=== PATIENT | female | born 1950 | race Caucasian/White ===

== ENCOUNTER 2016-05-29 14:49 | Emergency (ER) | payer OTHER ==
[~2016-05-29] VITALS: Ht 167.6 cm; Wt 61.7 kg
[2016-05-29] MEDS ORDERED: Morphine Sulfate 2mg/ml Inj IVP ONE (15:30)
[2016-05-29 15:46] VITALS: BP 121/54
[2016-05-29 16:23] LABS: BASOPHILS % (AUTO) 0.8 % (0.0-2.0); EOSINOPHILS % (AUTO) 0.5 % (0.0-3.0); LYMPHOCYTES % (AUTO) 25.8 % (20.0-45.0); MEAN CORPUSCULAR HEMOGLOBIN 28.5 PG (27.0-31.0); MEAN CORPUSCULAR HGB CONC 32.5 G/DL (32.0-36.0); MEAN CORPUSCULAR VOLUME 88 FL (80-99); MEAN PLATELET VOLUME 8.3 FL (6.5-10.1); MONOCYTES % (AUTO) 7.3 % (1.0-10.0); NEUTROPHILS % (AUTO) 65.6 % (45.0-75.0); PLATELET COUNT 191 K/UL (150-450); RED BLOOD COUNT 5.07 M/UL (4.20-5.40); RED CELL DISTRIBUTION WIDTH 12.4 % (11.6-14.8); WHITE BLOOD COUNT 9.6 K/UL (4.8-10.8)
[2016-05-29 16:27] LABS: TROPONIN I < 0.30 ng/mL (<=0.30)
[2016-05-29 16:30] LABS: INR 1.1 (0.9-1.1); PROTHROMBIN TIME 10.9 SEC (9.30-11.50)
[2016-05-29 16:33] LABS: ALANINE AMINOTRANSFERASE 185 U/L (3-33); ALBUMIN/GLOBULIN RATIO 1.3 (1.0-2.7); ANION GAP 15 (5-15); ASPARTATE AMINO TRANSFERASE 311 U/L (5-40); CARBON DIOXIDE 26 mEQ/L (20-30); CHLORIDE 102 mEQ/L (98-107); CREATININE 0.8 mg/dL (0.5-0.9); GLOMERULAR FILTRATION RATE > 60 mL/min (>60); HEMOLYSIS 5; LIPASE 68 U/L (< 60); POTASSIUM 3.6 mEQ/L (3.4-4.9); SODIUM 143 mEQ/L (135-145); TOTAL PROTEIN 7.2 g/dL (6.6-8.7)
[2016-05-29 16:42] LABS: APPEARANCE,URINE SLIGHTLY CLOUDY; KETONES,URINE NEGATIVE (NEGATIVE); LEUKOCYTE ESTERASE ,URINE NEGATIVE (NEGATIVE); NITRITE,URINE NEGATIVE (NEGATIVE); PH,URINE 8 (4.5-8.0); PROTEIN,URINE NEGATIVE (NEGATIVE); UROBILINOGEN,URINE NORMAL MG/DL (0.0-1.0)
[2016-05-29 16:45] LABS: BILIRUBIN,DIRECT 0.6 mg/dL (0.1-0.3)
[2016-05-29 16:56] LABS: BACTERIA,URINE FEW /HPF; ICTOTEST NEGATIVE; RBC,URINE 15-20 /HPF (0 - 2); SQUAMOUS EPITHELIAL CELL,UR MODERATE /LPF (NONE/OCC); WBC,URINE 0-2 /HPF (0 - 2)
[2016-05-29] MEDS ORDERED: KEFLEX500 MG ORAL (17:51)
[2016-05-29] MEDS ORDERED: NORCO 5-325 TA1 EACH ORAL (17:51)
[2016-05-29 18:04] VITALS: BP 129/69
[2016-05-29 18:05] VITALS: BP 121/54
--- NOTE | 2016-05-31 | Cardiology Report ---
APPROVED REPORT EKG Measurement Heart [id number] Sinus bradycardia Otherwise normal ECG
--- NOTE | 2016-06-03 16:00 | Emergency Room Report ---
Physical Exam Vital Signs Date Time Temp Pulse Resp B/P Pulse Ox O2 Delivery O2 Flow Rate FiO2 05/29/16 15:10 97.7 62 16 129/73 100 Room Air Medical Decision Making Diagnostic Impression: Primary Impression: Gallstones ER Course Dr Newell called that ultrasound done 05/29 (5 days ago). Tech did NOT image abdominal aorta. Also, concern for right sided complex renal cyst. Has been trying to call patient to come back all week. Patient was not admitted. Appears to be discharged. There is no ED physician note to provide additional information at this time. We sent letter from ED asking patient come back for additional imaging of right renal cyst and abd aorta at 359pm at 06/03. Last Vital Signs Date Time Temp Pulse Resp B/P Pulse Ox O2 Delivery O2 Flow Rate FiO2 05/29/16 18:05 97.7 55 14 121/54 100 Room Air Disposition: HOME, SELF-CARE Condition: Stable Scripts Hydrocodone Bit/Acetaminophen 5-325* (NORCO 5-325*) 1 Each Tablet 1 TAB ORAL Q6H Y for For Pain, #20 TAB 0 Refills Prov: Hussein Brunner 05/29/16 Cephalexin* (KEFLEX*) 500 Mg Capsule 500 MG ORAL Q6H, #28 CAP 0 Refills Prov: Hussein Brunner 05/29/16 Patient Instructions: Biliary Colic ROLLY STILES M.D. Jun 03, 2016 16:00
--- NOTE | 2016-06-04 09:23 | Emergency Room Report ---
History of Present Illness General Chief Complaint: Abdominal Pain Source: Patient Present Illness HPI Patient is a 66 yo female who presented for increased sharp epigastric pain, gradual onset over past few hours. Patient had prior history of gallstones. She denied any fever or vomiting. She had not noticed any change in skin color. Onset occurred after eating. She had no black or bloody stools. Allergies: Coded Allergies: No Known Allergies (Unverified , 05/29/16) Patient History Past Medical History: see triage record Now: No Reviewed Nursing Documentation: PMH: Agreed, PSxH: Agreed Nursing Documentation-PMH Past Medical History: No History, Except For Review of Systems All Other Systems: negative except mentioned in HPI Physical Exam Vital Signs Date Time Temp Pulse Resp B/P Pulse Ox O2 Delivery O2 Flow Rate FiO2 05/29/16 15:10 97.7 62 16 129/73 100 Room Air Sp02 EP Interpretation: reviewed, normal General Appearance: normal inspection, well appearing, no apparent distress, alert, GCS 15, non-toxic Head: atraumatic ENT: normal ENT inspection, hearing grossly normal, normal voice Neck: normal inspection, full range of motion, supple, no bony tend Respiratory: normal inspection, lungs clear, normal breath sounds, no respiratory distress, no retraction, no wheezing Cardiovascular #1: regular rate, rhythm, no edema Gastrointestinal: normal inspection, normal bowel sounds, soft, no guarding, no hernia, tenderness - epigastric Genitourinary: no CVA tenderness Musculoskeletal: normal inspection, back normal, normal range of motion Neurologic: normal inspection, alert, responsive, speech normal Psychiatric: normal inspection, judgement/insight normal, mood/affect normal Skin: normal inspection, normal color, no rash Medical Decision Making Diagnostic Impression: Primary Impression: Gallstones ER Course Patient presented for abdominal pain. Differential diagnosis included but was not limited to biliary colic, cholecystitis, abdominal aortic aneurysm, peptic ulcer disease, uti among others. Patient was noted to have complex medical condition requiring imaging laboratory testing and imaging studies. Patient had abdominal ultrasound with gallstones without gallbladder thickening, some complex renal cysts were noted. Patient was noted to have some elevation of liver function testing enzymes. Patient was offered admission for surgical consult and she declined. She stated she would follow up with her own physicians for surgical management. She was given prescriptions for pain medications. She was advised to return if she felt any worsening of condition, fever or persistent vomiting. Labs Test 05/29/16 15:31 05/29/16 16:14 White Blood Count 9.6 K/UL (4.8-10.8) Red Blood Count 5.07 M/UL (4.20-5.40) Hemoglobin 14.4 G/DL (12.0-16.0) Hematocrit 44.4 % (37.0-47.0) Mean Corpuscular Volume 88 FL (80-99) Mean Corpuscular Hemoglobin 28.5 PG (27.0-31.0) Mean Corpuscular Hemoglobin Concent 32.5 G/DL (32.0-36.0) Red Cell Distribution Width 12.4 % (11.6-14.8) Platelet Count 191 K/UL (150-450) Mean Platelet Volume 8.3 FL (6.5-10.1) Neutrophils (%) (Auto) 65.6 % (45.0-75.0) Lymphocytes (%) (Auto) 25.8 % (20.0-45.0) Monocytes (%) (Auto) 7.3 % (1.0-10.0) Eosinophils (%) (Auto) 0.5 % (0.0-3.0) Basophils (%) (Auto) 0.8 % (0.0-2.0) Prothrombin Time 10.9 SEC (9.30-11.50) Prothromb Time International Ratio 1.1 (0.9-1.1) Activated Partial Thromboplast Time 24 SEC (23-33) Sodium Level 143 mEQ/L (135-145) Potassium Level 3.6 mEQ/L (3.4-4.9) Chloride Level 102 mEQ/L (98-107) Carbon Dioxide Level 26 mEQ/L (20-30) Anion Gap 15 (5-15) Blood Urea Nitrogen 16 mg/dL (7-23) Creatinine 0.8 mg/dL (0.5-0.9) Estimat Glomerular Filtration Rate > 60 mL/min (>60) Glucose Level 133 mg/dL (74-106) Calcium Level 9.0 mg/dL (8.6-10.2) Total Bilirubin 2.2 mg/dL (0.0-1.2) Direct Bilirubin 0.6 mg/dL (0.1-0.3) Aspartate Amino Transf (AST/SGOT) 311 U/L (5-40) Alanine Aminotransferase (ALT/SGPT) 185 U/L (3-33) Alkaline Phosphatase 95 U/L (35-104) Troponin I < 0.30 ng/mL (<=0.30) Total Protein 7.2 g/dL (6.6-8.7) Albumin 4.1 g/dL (3.5-5.2) Globulin 3.1 g/dL Albumin/Globulin Ratio 1.3 (1.0-2.7) Lipase 68 U/L (< 60) Urine Color Sondra Urine Appearance Slightly cloudy Urine pH 8 (4.5-8.0) Urine Specific [place] 1.010 (1.005-1.035) Urine Protein Negative (NEGATIVE) Urine Glucose (UA) Negative (NEGATIVE) Urine Ketones Negative (NEGATIVE) Urine Occult Blood 3+ (NEGATIVE) Urine Nitrite Negative (NEGATIVE) Urine Bilirubin Negative (NEGATIVE) Urine Ictotest Negative Urine Urobilinogen Normal MG/DL (0.0-1.0) Urine Leukocyte Esterase Negative (NEGATIVE) Urine RBC 15-20 /HPF (0 - 2) Urine WBC 0-2 /HPF (0 - 2) Urine Squamous Epithelial Cells Moderate /LPF (NONE/OCC) Urine Bacteria Few /HPF (NONE) Last Vital Signs Date Time Temp Pulse Resp B/P Pulse Ox O2 Delivery O2 Flow Rate FiO2 05/29/16 18:05 97.7 55 14 121/54 100 Room Air Status: improved Disposition: HOME, SELF-CARE Condition: Stable Scripts Hydrocodone Bit/Acetaminophen 5-325* (NORCO 5-325*) 1 Each Tablet 1 TAB ORAL Q6H Y for For Pain, #20 TAB 0 Refills Prov: Hussein Brunner 05/29/16 Cephalexin* (KEFLEX*) 500 Mg Capsule 500 MG ORAL Q6H, #28 CAP 0 Refills Prov: Hussein Brunner 05/29/16 Patient Instructions: Biliary Colic Hussein Brunner Jun 04, 2016 09:23
--- NOTE | 2016-06-06 08:04 | Diagnostic Imaging Report ---
Indication: Abdominal pain Technique: Luna-scale and duplex images of the upper abdomen were obtained Comparison: None Findings: The aorta is not demonstrated. Attempts were made at contacting the patient recalled for imaging of the aorta, this was not successful. . Gallbladder demonstrates gallstones. Gallbladder wall is borderline thickened, measuring approximately 3 mm diameter, but the gallbladder is incompletely distended so suspect this is artifact of under distention. Common bile duct measures 3 mm in diameter. No intrahepatic biliary ductal dilatation. Liver demonstrates normal echogenicity, no focal abnormality. Portal vein and hepatic veins are patent. Pancreas is incompletely visualized due to overlying bowel gas, visualized portions are unremarkable. Spleen is unremarkable. Left kidney measures 9.4 cm in length. Right kidney measures 12.5 cm length. Both kidneys demonstrate normal echogenicity. There is no hydronephrosis. Both kidneys demonstrate multiple cysts. One of these on the right appears complex. Impression: Cholelithiasis. Apparent gallbladder wall thickening is probably artifact of under distention. However, consider hepatobiliary nuclear scan if there is high clinical suspicion of acute cholecystitis Negative for dilated ducts Bilateral renal cysts. One of these on the right appears complex, and further evaluation with contrast CT should be considered. This was discussed by phone with Dr. Torrez in the emergency room at the time of interpretation Negative for dilated ducts
== END 2016-05-29 18:07 | disposition home or self-care (01) ==
LOC: EMR 15:51
DX: K80.80 Other cholelithiasis without obstruction (principal); N28.1 Cyst of kidney, acquired
CPT/HCPCS: 36415; 76700; 80053; 81003; 82248; 82962; 83690; 84484; 85025; 85610; 85730; 86850; 86900; 86901; 93005; 96374; 96375; 99284; J2270; J2405